=== PATIENT | female | born 1990 | race Caucasian/White ===

== ENCOUNTER 2020-02-12 08:23 | Inpatient (IN) | payer OTHER, MEDICAID ==
[~2020-02-12] VITALS: Ht 160 cm; Wt 88.2 kg
[2020-02-12] MEDS ORDERED: OXYTOCIN 30U/ 0.9% NaCL 500ML 500 ML IV ONE (08:58)
[2020-02-12] MEDS ORDERED: OXYTOCIN 30U/ 0.9% NaCL 500ML 500 ML IV PRN (08:58)
[2020-02-12] MEDS ORDERED: D5%-LACTATED RINGERS 1,000 ML IV SCH (08:58)
[2020-02-12] MEDS ORDERED: TERBUTALINE 1 MG/ML, 1ML SQ PRN (09:00)
[2020-02-12] MEDS ORDERED: LIDOCAINE 1%, 20ML ONE (09:00)
[2020-02-12] MEDS ORDERED: ONDANSETRON 2MG/ML, 2ML IVPush PRN (09:00)
[2020-02-12] MEDS ORDERED: NEWBORN KIT ONE (09:00)
[2020-02-12] MEDS ORDERED: OXYTOCIN 30U/ 0.9% NaCL 500ML 500 ML ONE (09:00)
[2020-02-12] MEDS: LACTATED RINGERS 1,000 ML IV SCH ×2 (09:00→09:45)
[2020-02-12] MEDS ORDERED: MISOPROSTOL 200 MCG TABLET ONE (09:00)
[2020-02-12] MEDS ORDERED: TERBUTALINE 1 MG/ML, 1ML IVPush PRN (09:00)
[2020-02-12] MEDS ORDERED: FENTANYL PF 100 MCG/2ML IVPush PRN (09:00)
[2020-02-12] MEDS ORDERED: FENTANYL/BUPIV./NS/PF 250 ML EPIDCONT ONE (09:24)
[2020-02-12 09:38] LABS: BASOPHILS # (AUTO) 0.04 x10^3/uL (0-0.1); BASOPHILS % (AUTO) 0 % (0-1); EOSINOPHILS # (AUTO) 0.17 x10^3/uL (0-0.4); EOSINOPHILS % (AUTO) 2 % (1-7); LYMPHOCYTES % (AUTO) 13 % (22-44); MD NO; MEAN CORPUSCULAR VOLUME 94.2 fL (80-100); MEAN PLATELET VOLUME 10.1 fL (7.4-10.4); MONOCYTES # (AUTO) 0.68 x10^3/uL (0.2-0.8); MONOCYTES % (AUTO) 6 % (2-9); NEUTROPHILS # (AUTO) 8.88 x10^3/uL (1.8-6.8); NEUTROPHILS % (AUTO) 79 % (42-75); PLATELET COUNT 171 x10^3/uL (130-400); RED BLOOD COUNT 4.39 x10^6/uL (3.82-5.3); RED CELL DISTRIBUTION WIDTH 13.8 % (9.6-15.2)
[2020-02-12] MEDS ORDERED: BUPIVACAINE 0.25% ONE (09:45)
[2020-02-12 09:50] LABS: ALBUMIN 2.6 g/dL (3.4-5.0); ANION GAP 10 mmol/L (5-15); CALCIUM 8.5 mg/dL (8.5-10.1); CHLORIDE 105 mmol/L (98-107)
[2020-02-12 09:55] LABS: ALANINE AMINOTRANSFERASE 13 U/L (12-78); ALKALINE PHOSPHATASE 137 U/L (45-117); BILIRUBIN,TOTAL 0.4 mg/dL (0.2-1.0); CREATININE 0.74 mg/dL (0.55-1.02); TOTAL PROTEIN 6.5 g/dL (6.4-8.2)
[2020-02-12] MEDS ORDERED: FENTANYL/BUPIV./NS/PF 250 ML EPIDCONT SCH (10:17)
[2020-02-12] MEDS ORDERED: LACTATED RINGERS 1,000 ML IV SCH (10:17)
[2020-02-12] MEDS ORDERED: EPHEDRINE 50 MG/ML, 1ML IVPush PRN (10:30)
[2020-02-12] MEDS ORDERED: LACTATED RINGERS 1,000 ML IVBOLUS PRN (10:30)
[2020-02-12] MEDS ORDERED: FENTANYL PF 500 MCG, BUPIVACAINE/PF 0.5%, 30ML 62.5 ML in SODIUM CHLORIDE 0.9% 177.5 ML EPIDCONT SCH (10:30)
[2020-02-12 11:00] LABS: MICROSCOPIC INDICATED
[2020-02-12] MEDS ORDERED: MISOPROSTOL 200 MCG TABLET PR PRN (12:00)
[2020-02-12] MEDS ORDERED: HYDROcodone/APAP 5/325 TABLET PO PRN ×2 (12:00)
[2020-02-12] MEDS ORDERED: ACETAMINOPHEN 325 MG TABLET PO PRN (12:00)
[2020-02-12] MEDS ORDERED: SIMETHICONE 80 MG CHEW TAB PO PRN (12:00)
[2020-02-12] MEDS ORDERED: IBUPROFEN 600 MG TABLET ONE (13:04)
[2020-02-12] MEDS ORDERED: IBUPROFEN 200 MG TABLET PO PRN (13:30)
[2020-02-12] MEDS ORDERED: IBUPROFEN 600 MG TABLET PO PRN (13:30)
[2020-02-12 13:45] VITALS: BP 126/61
[2020-02-12] MEDS: OXYTOCIN 30U/ 0.9% NaCL 500ML 500 ML IV SCH (17:16)
[2020-02-12 17:38] VITALS: BP 116/71
[2020-02-12 19:08] LABS: BASOPHILS # (AUTO) 0.04 x10^3/uL (0-0.1); BASOPHILS % (AUTO) 0 % (0-1); EOSINOPHILS # (AUTO) 0.05 x10^3/uL (0-0.4); EOSINOPHILS % (AUTO) 0 % (1-7); LYMPHOCYTES # (AUTO) 1.47 x10^3/uL (1-3.4); LYMPHOCYTES % (AUTO) 10 % (22-44); MD NO; MEAN CORPUSCULAR HEMOGLOBIN 31.8 pg (27.0-34.8); MEAN CORPUSCULAR VOLUME 93.5 fL (80-100); MEAN PLATELET VOLUME 10.1 fL (7.4-10.4); MONOCYTES % (AUTO) 5 % (2-9); NEUTROPHILS % (AUTO) 84 % (42-75); PLATELET COUNT 148 x10^3/uL (130-400); RED BLOOD COUNT 4.37 x10^6/uL (3.82-5.3); RED CELL DISTRIBUTION WIDTH 13.7 % (9.6-15.2)
[2020-02-12] MEDS: IBUPROFEN 800 MG TABLET PO PRN (19:35)
[2020-02-12] MEDS: DOCUSATE 100 MG CAPSULE PO PRN (19:35)
[2020-02-12 20:17] VITALS: BP 128/82
[2020-02-13 00:26] VITALS: BP 134/91
[2020-02-13] MEDS: OXYTOCIN 30U/ 0.9% NaCL 500ML 500 ML IV SCH ×3 (03:00→23:00)
[2020-02-13] MEDS: IBUPROFEN 800 MG TABLET PO PRN ×3 (03:30→19:55)
[2020-02-13 06:54] VITALS: BP 106/88
[2020-02-13] MEDS: DOCUSATE 100 MG CAPSULE PO PRN ×2 (11:33→19:55)
[2020-02-13] MEDS: PRENATAL VIT/IRON/FA 1 EACH TABLET PO SCH (11:33)
[2020-02-13 12:50] VITALS: BP 120/87
[2020-02-13 21:32] VITALS: BP 118/84
[2020-02-14 08:00] VITALS: BP 120/82
[2020-02-14] MEDS: PRENATAL VIT/IRON/FA 1 EACH TABLET PO SCH (09:00)
[2020-02-14] MEDS: DOCUSATE 100 MG CAPSULE PO PRN (09:00)
[2020-02-14] MEDS: OXYTOCIN 30U/ 0.9% NaCL 500ML 500 ML IV SCH (09:00)
[2020-02-14] MEDS ORDERED: IBUP-1223 PO (17:26)
== END 2020-02-14 19:00 | disposition home or self-care (01) | DRG 807 ==
LOC: LDOP 08:23 → LDIP 08:57 → 2NW 13:49
PROVIDERS: ADMIT Obstetrics & Gynecology Female Pelvic Medicine and Reconstructive Surgery; ATTEND Obstetrics & Gynecology Female Pelvic Medicine and Reconstructive Surgery
PROC: 10E0XZZ Delivery of Products of Conception, External Approach (ICD-10-PCS; principal; 2020-02-12)
PROC: 10907ZC Drainage of Amniotic Fluid, Therapeutic from Products of Conception, Via Natural or Artificial Opening (ICD-10-PCS; 2020-02-12)
DX: O69.81X0 Labor and delivery complicated by cord around neck, without compression, not applicable or unspecified (principal); Z37.0 Single live birth; Z3A.40 40 weeks gestation of pregnancy; Z20.828 Contact with and (suspected) exposure to other viral communicable diseases
CPT/HCPCS: 36415; 80053; 81001; 82570; 84156; 84550; 85025; 86592; 86850; 86900; G0378; J2590; J7120; U0001-CS

== ENCOUNTER 2021-02-14 19:26 | Emergency (ER) | payer OTHER, MEDICAID ==
[~2021-02-14] VITALS: Ht 162.6 cm; Wt 67.1 kg
[~2021-02-14 19:26] MED LIST: IBUP-1223 PO
[2021-02-14 19:28] VITALS: BP 136/83
--- NOTE | 2021-02-14 23:41 | NUR ---
[id number]
== END 2021-02-14 23:42 ==
LOC: ED 22:45
DX: R59.9 Enlarged lymph nodes, unspecified (principal); Z53.21 Procedure and treatment not carried out due to patient leaving prior to being seen by health care provider